=== PATIENT | female | born 1975 | race Hispanic/Latino ===

== ENCOUNTER 2023-11-15 18:10 | Emergency (ER) | payer OTHER, SELFPAY ==
--- NOTE | ~2023-11-15 | US_ITS ---
EXAMINATION: US venous doppler [facility] DATE: 11/15/2023 20:38 INDICATION: Lower limb swelling. TECHNIQUE: Grayscale ultrasound images without and with compression and Doppler ultrasound images of the bilateral lower extremity veins were obtained. COMPARISON: None. FINDINGS: The visualized portions of right common femoral vein, profunda (deep) femoral vein, femoral vein, pop liteal vein, posterior tibial veins, and greater saphenous vein outflow are patent. There is thrombus in the right peroneal veins. The visualized portions of left common femoral vein, profunda femoral vein, femoral vein, popliteal v ein, posterior tibial veins, and greater saphenous vein outflow are patent. The left peroneal veins a re not visualized. IMPRESSION: 1. Deep vein thrombosis involving the right peroneal veins. Reviewed, dictated and finalized at location E.
[2023-11-15 18:12] VITALS: BP 135/76; PULSE 87; RESP 16; TEMP 36.8; O2SAT 98
[2023-11-15 18:49] VITALS: BP 118/70; PULSE 69; RESP 19; O2SAT 98
[2023-11-15 19:32] VITALS: BP 119/68; PULSE 83; RESP 22
--- NOTE | 2023-11-15 19:37 | PC.NURSE ---
care and report given to LESLIE Maurer. all questions answered.
[2023-11-15 19:58] LABS: Basophils Absolute Auto 0.1 K/mm3 (0.0-0.1); Basophils Percent Auto 0.9 % (0.2-1.2); Eosinophils Absolute Auto 0.4 K/mm3 (0-0.3); Eosinophils Percent Auto 7.3 % (0-4.4); Hematocrit 42.5 % (37.0-47.0); Immature Granulocyte Absolute 0.01 K/mm3 (0.00-0.031); Immature Granulocyte Percent A 0.2 % (0-0.5); Immature Platelet Fraction Pct 1.6 % (0.9-11.2); Lymphocytes Absolute Auto 1.08 K/mm3 (0.9-3.2); Lymphocytes Percent Auto 19.3 % (18.3-44.2); Mean Corpuscular HGB Conc 35.3 g/dl (32-36); Mean Corpuscular Hemoglobin 34.2 pg (26-34); Mean Corpuscular Volume 96.8 fl (80-100); Mean Platelet Volume 10.1 fl (7.4-10.4); Monocytes Absolute Auto 0.7 K/mm3 (0.1-0.6); Monocytes Percent Auto 12.9 % (2.6-8.5); Neutrophils Absolute Auto 3.3 K/mm3 (1.3-6.7); Neutrophils Percent Auto 59.4 % (45.5-73.1); Platelet Count Result 95 k/mm3 (150-375); Red Blood Count 4.39 M/mm3 (4.2-5.4); Red Cell Distribution Width 13.3 % (11.5-14.5); White Blood Count 5.6 K/mm3 (4.5-10.0)
[2023-11-15 20:05] VITALS: BP 117/77; PULSE 73; RESP 17; O2SAT 97
[2023-11-15 20:14] LABS: Alanine Aminotransferase 25 U/L (6-35); Albumin Level 3.7 g/dL (3.5-5.1); Alkaline Phosphatase 98 U/L (38-126); Anion Gap 8 mmol/L (4-12); Aspartate Amino Transferase 48 U/L (14-36); Bilirubin,Total 2.6 mg/dL (0.2-1.3); Blood Urea Nitrogen 8 mg/dL (7-17); Calcium 8.9 mg/dL (8.4-10.2); Carbon Dioxide 25 mmol/L (22-30); Chloride 103 mmol/L (98-107); Estimated CRCL calculation 129 ml/min; Estimated Glomerular Filt Rate > 60; Glucose 132 mg/dL (65-110); Potassium 3.8 mmol/L (3.4-5.0); Sodium 136 mmol/L (137-145)
[2023-11-15 20:16] LABS: INR 1.3; Partial Thromboplastin Time 34.1 Seconds (22.3-36.8); Prothrombin Time 16.8 Seconds (11.1-14.7)
--- NOTE | 2023-11-15 20:21 | ED.GENADULT ---
HPI - General Adult General Chief complaint: Extremity Problem,Nontraumatic Stated complaint: right lower extremity infection Time Seen by Provider: 11/15/23 19:12 History of Present Illness HPI narrative: patient is a 48-year-old male with history of liver cirrhosis who presents ER with rash and redness the right lower extremity. Ongoing for 2 months but worsening over last 2 weeks. Mild discomfort to touch mildly itchy. He initially thought it was poison zenobia. He has tried hydrogen peroxide and topical antibiotic without improvement. The redness has line of demarcation above his sock. There is crusting and breaking of the skin. There is very mild warmth. patient has similar rash the lateral aspect of the left leg just above the ankle. The right leg it is circumferential over lower part of the distal calf and goes up the anterior turcios. No pustules. Patient has no area physician. He is working here on a contract. Related Data Allergies Allergy/AdvReac Type Severity Reaction Status Date / Time No Known Allergies Allergy Verified 11/15/23 18:55 Review of Systems Review of Systems: All systems reviewed & are unremarkable except as noted in HPI and below Constitutional: Constitutional: Reports no additional constitutional complaints ENT: Reports system reviewed and no additional complaints, except as documented Musculoskeletal: Musculoskeletal: Reports no additional musculoskeletal complaints Integumentary/Breasts: Skin/Breast: Reports erythema, Reports rash and Denies skin ulcer PMFSH Past Medical History Medical History (Updated 11/15/23 @ 21:29 by Eber Rucker MD) Cirrhosis of liver Surgical History Surgical History (Updated 11/15/23 @ 20:25 by Eber Rucker MD) No pertinent past surgical history Exam Narrative: GENERAL: Well-appearing, well-nourished, and in no acute distress. HEAD: Normocephalic, atraumatic. ENT: Mucous membranes moist. CHEST: Clear to auscultation. No respiratory distress. HEART: Regular rate and rhythm. Normal peripheral pulses. ABDOMEN: Soft, nontender, nondistended. EXTREMITIES: Normal range of motion. 1+ edema. SKIN: Warm, dry. Dermatitis rash to the right anterior turcios extending down to the lower turcios above the ankle in the moving posteriorly to the distal calf. There are cracks in the dry skin. No pustules or vesicles. A similar rash that is 3 cm in diameter to a left leg just proximal to lateral malleolus. NEURO: Alert and oriented x3. PSYCH: Normal mood and affect. Course Course Emergency Course: Patient informed of results. Discussed need for blood thinning medication establishing care with PCP for continued refills. Discussed avoidance of NSAIDs. Discussed bleeding wrists while on a blood thinner. Patient verbalized understanding. Discharge home. Vital Signs Vital signs: Vital Signs Temperature 98.2 F 11/15/23 18:12 Pulse Rate 87 11/15/23 18:12 Respiratory Rate 16 11/15/23 18:12 Blood Pressure 135/76 11/15/23 18:12 Pulse Oximetry 98 11/15/23 18:12 Temperature 98.2 F 11/15/23 18:12 Pulse Rate 73 11/15/23 20:05 Respiratory Rate 17 11/15/23 20:05 Blood Pressure 117/77 11/15/23 20:05 Pulse Oximetry 97 11/15/23 20:05 Medical Decision Making Vital Signs Vital Signs: Vital Signs Temperature 98.2 F 11/15/23 18:12 Pulse Rate 87 11/15/23 18:12 Respiratory Rate 16 11/15/23 18:12 Blood Pressure 135/76 11/15/23 18:12 Pulse Oximetry 98 11/15/23 18:12 Temperature 98.2 F 11/15/23 18:12 Pulse Rate 73 11/15/23 20:05 Respiratory Rate 17 11/15/23 20:05 Blood Pressure 117/77 11/15/23 20:05 Pulse Oximetry 97 11/15/23 20:05 Lab Data 11/15/23 19:45 11/15/23 19:45 Labs: Lab Results 11/15/23 Range/Units 19:45 WBC 5.6 (4.5-10.0) K/mm3 RBC 4.39 (4.2-5.4) M/mm3 Hgb 15.0 (12.0-15.0) g/dL Hct 42.5 (37.0-47.0) % MCV
[2023-11-15 21:45] VITALS: BP 128/72; PULSE 72; RESP 20; O2SAT 98
== END 2023-11-15 21:45 | disposition home or self-care (01) ==
PROVIDERS: Emergency Provider Emergency Medicine
DX: I82.451 Acute embolism and thrombosis of right peroneal vein (principal); L30.9 Dermatitis, unspecified
CPT/HCPCS: 36415; 80053; 85025; 85055; 85610; 85730; 93970; 99284